=== PATIENT | female | born 1995 | race Caucasian/White ===

== ENCOUNTER 2016-09-22 16:06 | Inpatient (IN) | payer OTHER ==
[2016-09-22] VITALS (11 sets, daily range): BP systolic 112–144; BP diastolic 63–92
[~2016-09-22] VITALS: Ht 152.4 cm; Wt 68.0 kg
[~2016-09-22 16:06] MED LIST: LORATADINE10 M2 PO; MACROBID100 MG PO; METFORMIN HCL500 M1 PO; MOBIC15 MG PO; MOTRIN800 MG PO; NORCO 7.5/321 TABLET PO; PRENATAL TABLE1 EAC3 PO; PROMETHAZINE HC25 M1 PO; VALIUM5 MG PO; ZITHROMAX Z-PA250 MG PO; ZOLOFT25 MG PO; ZOLOFT50 MG PO
[2016-09-22 17:06] LABS: EOSINOPHIL (%) 0.1 % (0-5); HEMATOCRIT 35.5 % (36.0-46.0); IMMATURE GRANULOCYTE (%) 0.3 % (0.0-0.7); LYMPHOCYTE COUNT 2.2 K/uL (1.0-2.8); MCHC 33.5 G/DL (30.0-36.0); MCV 89.4 FL (83-99); MEAN PLAT.VOLUME 10.3 uM^3 (9.5-12.4); MONOCYTE (%) 5.7 % (3-12); MONOCYTE COUNT 0.8 K/uL (0-0.8); PLATELET COUNT 260 K/uL (156-360); RBC DIS.WIDTH-CV 13.2 % (11.8-14.6); RED BLOOD COUNT 3.97 M/uL (3.80-5.20); WHITE BLOOD COUNT 14.1 K/uL (4.1-10.2)
[2016-09-22 17:34] LABS: AMPHETAMINES QUANT VALUE 0 NG/ML; BARBITUATES QUANT VALUE 0 NG/ML; BENZODIAZEPINES QUANT VALUE 0 NG/ML; BENZODIAZEPINES, URINE SCREEN Negative (200 ng/mL); MARIJUANA QUANT VALUE 0 NG/ML; PHENCYCLIDINE QUANT VALUE 0 NG/ML
[2016-09-23] VITALS (22 sets, daily range): BP systolic 106–142; BP diastolic 59–87
[2016-09-23 12:46] LABS: CHLAMYDIA TRACHOMATIS NEGATIVE; NEISSERIA GONORRHOEAE NEGATIVE
[2016-09-24 07:04] VITALS: BP 119/62
[2016-09-24 07:06] LABS: EOSINOPHIL (%) 0.2 % (0-5); HEMATOCRIT 31.9 % (36.0-46.0); IMMATURE GRANULOCYTE (%) 0.3 % (0.0-0.7); IMMATURE GRANULOCYTE COUNT 0.1 K/uL; LYMPHOCYTE COUNT 3.4 K/uL (1.0-2.8); MCH 29.4 PG (29.0-34.0); MCHC 32.9 G/DL (30.0-36.0); MCV 89.4 FL (83-99); MEAN PLAT.VOLUME 10.4 uM^3 (9.5-12.4); MONOCYTE COUNT 1.3 K/uL (0-0.8); NEUTROPHIL (%) 70.9 % (45-76); NEUTROPHIL COUNT 11.7 K/uL (1.8-6.4); PLATELET COUNT 219 K/uL (156-360); RBC DIS.WIDTH-CV 13.4 % (11.8-14.6); RBC DIS.WIDTH-SD 43.5 % (39-53); RED BLOOD COUNT 3.57 M/uL (3.80-5.20); WHITE BLOOD COUNT 16.6 K/uL (4.1-10.2)
[2016-09-24 15:56] VITALS: BP 118/66
[2016-09-25 08:45] VITALS: BP 139/83
== END 2016-09-25 16:15 | disposition home or self-care (01) | DRG 775 ==
LOC: LDRP-OP 16:06 → 2WEST 16:07 → LDRP-OP 10-20 21:34
PROVIDERS: Advanced Practice Midwife
PROC: 3E0S3BZ Introduction of Anesthetic Agent into Epidural Space, Percutaneous Approach (ICD-10-PCS; 2016-09-22)
PROC: 10E0XZZ Delivery of Products of Conception, External Approach (ICD-10-PCS; principal; 2016-09-23)
PROC: 10907ZC Drainage of Amniotic Fluid, Therapeutic from Products of Conception, Via Natural or Artificial Opening (ICD-10-PCS; 2016-09-23)
DX: O77.0 Labor and delivery complicated by meconium in amniotic fluid (principal); O99.354 Diseases of the nervous system complicating childbirth; F33.9 Major depressive disorder, recurrent, unspecified; Z37.0 Single live birth; Z3A.39 39 weeks gestation of pregnancy; O69.81X1 Labor and delivery complicated by cord around neck, without compression, fetus 1; E66.3 Overweight; O99.214 Obesity complicating childbirth; O99.344 Other mental disorders complicating childbirth; F12.90 Cannabis use, unspecified, uncomplicated; F41.9 Anxiety disorder, unspecified; G43.909 Migraine, unspecified, not intractable, without status migrainosus; Z62.810 Personal history of physical and sexual abuse in childhood; F17.290 Nicotine dependence, other tobacco product, uncomplicated; O99.334 Smoking (tobacco) complicating childbirth; F11.90 Opioid use, unspecified, uncomplicated; Z68.29 Body mass index [BMI] 29.0-29.9, adult
CPT/HCPCS: 85025; 87491; 87591; C1726; C1755; G0378; J3010; J7120

== ENCOUNTER 2017-03-08 18:23 | Emergency (ER) | payer OTHER ==
[~2017-03-08] VITALS: Ht 152.4 cm; Wt 63.4 kg
[2017-03-08 20:29] LABS: HEMATOCRIT 38.5 % (36.0-46.0); MCH 29.6 PG (29.0-34.0); MCHC 33.2 G/DL (30.0-36.0); MCV 88.9 FL (83-99); MEAN PLAT.VOLUME 9.2 uM^3 (9.5-12.4); PLATELET COUNT 296 K/uL (156-360); RBC DIS.WIDTH-SD 42.7 % (39-53); RED BLOOD COUNT 4.33 M/uL (3.80-5.20); WHITE BLOOD COUNT 8.1 K/uL (4.1-10.2)
[2017-03-08 20:37] LABS: CHLORIDE 111 mEq/L (99-109); POTASSIUM 3.6 mEq/L (3.7-5.4); SODIUM 144 mEq/L (136-147)
[2017-03-08 20:39] LABS: GLUCOSE 134 mg/dL (70-99)
[2017-03-08 20:40] LABS: ANION GAP 12 MEQ/L (2-14)
[2017-03-08 20:42] LABS: GFR ESTIMATE (CALCULATED) > 59 mL/min/; SERUM ETHYL ALCOHOL < 10 mg/dL
[2017-03-08 20:43] LABS: UREA NITROGEN (BUN) 12 mg/dL (9-23)
[2017-03-08 20:51] LABS: QUANTITATIVE HCG < 4.0 MIU/ML
[2017-03-08 21:23] LABS: ABS NEUTROPHIL COUNT 4.5; ATYPICAL LYMPHOCYTE 3.5 %; EOSINOPHIL ABS CT 0.4; EOSINOPHILS 4.4 % (0-5.0); INSTRUMENT ABS NEUTROPHIL CT 3.5 K/uL; LYMPHOCYTES 33.4 % (15.0-45.0); SEG.NEUTROPHILS 55.2 % (46.0-76.0)
[2017-03-08 22:19] LABS: AMPHETAMINE NEGATIVE (500 ng/mL); BARBITURATES NEGATIVE (200 ng/mL); BENZODIAZEPINES NEGATIVE (150 ng/mL); COCAINE NEGATIVE (150 ng/mL); INTERNAL CONTROLS VALID? YES; METHADONE NEGATIVE (200 ng/mL); METHAMPHETAMINE NEGATIVE (500 ng/mL); OPIATES (MORPHINE) NEGATIVE (100 ng/mL); OXYCODONE NEGATIVE (100 ng/mL); PHENCYCLIDINE NEGATIVE (25 ng/mL); PROPOXYPHENE NEGATIVE (300 ng/mL); THC CANNABINOIDS NEGATIVE (50 ng/mL); TRICYCLIC ANTIDEPRESSANTS NEGATIVE (300 ng/mL)
[2017-03-09 00:20] VITALS: BP 104/60
[2017-03-09] MEDS ORDERED: BENADRYL50 MG PO (13:13)
== END 2017-03-09 00:21 | disposition home or self-care (01) ==
LOC: EME 18:23
PROVIDERS: Emergency Medicine
DX: F43.22 Adjustment disorder with anxiety (principal); F43.10 Post-traumatic stress disorder, unspecified; F43.9 Reaction to severe stress, unspecified; J32.1 Chronic frontal sinusitis; J32.2 Chronic ethmoidal sinusitis; J32.3 Chronic sphenoidal sinusitis; F17.200 Nicotine dependence, unspecified, uncomplicated
CPT/HCPCS: 70450; 80048; 84702; 85025; 90839; 99281; 99284; G0480

== ENCOUNTER 2017-03-09 08:40 | Emergency (ER) | payer OTHER ==
[~2017-03-09] VITALS: Ht 165.1 cm; Wt 62.2 kg
[2017-03-09 09:43] LABS: HEMATOCRIT 41.4 % (36.0-46.0); MCH 29.3 PG (29.0-34.0); MCHC 32.6 G/DL (30.0-36.0); MCV 89.8 FL (83-99); PLATELET COUNT 312 K/uL (156-360); RBC DIS.WIDTH-CV 13.2 % (11.8-14.6); RBC DIS.WIDTH-SD 43.4 % (39-53); RED BLOOD COUNT 4.61 M/uL (3.80-5.20); WHITE BLOOD COUNT 6.3 K/uL (4.1-10.2)
[2017-03-09 09:46] LABS: ADD MIUA? YES; BILIRUBIN NEGATIVE; BLOOD SMALL; COLOR YELLOW ((YELLOW)); GLUCOSE (STRIP) NEGATIVE; KETONES NEGATIVE; LEUKOCYTES NEGATIVE; NITRITE NEGATIVE; PROTEIN (STRIP) NEGATIVE; SPECIFIC GRAVITY 1.013 (1.000-1.030); UROBILINOGEN 0.2 MG/DL (0.2-1.0)
[2017-03-09 09:50] LABS: BACTERIA RARE /HPF; EPITHELIAL CELLS RARE /HPF; MUCUS TRACE /LPF; RED BLOOD CELLS 0-5 /HPF (0-5); WHITE BLOOD CELLS 0-5 /HPF (0-5)
[2017-03-09 09:52] LABS: CHLORIDE 107 mEq/L (99-109); POTASSIUM 4.2 mEq/L (3.7-5.4); SODIUM 140 mEq/L (136-147)
[2017-03-09 09:54] LABS: GLUCOSE 90 mg/dL (70-99)
[2017-03-09 09:55] LABS: ANION GAP 7 MEQ/L (2-14)
[2017-03-09 09:56] LABS: SERUM ETHYL ALCOHOL < 10 mg/dL
[2017-03-09 09:57] LABS: GFR ESTIMATE (CALCULATED) > 59 mL/min/
[2017-03-09 09:59] LABS: UREA NITROGEN (BUN) 11 mg/dL (9-23)
[2017-03-09 10:00] LABS: SALICYLATE < 5.0 MG/DL (15-30)
[2017-03-09 10:09] LABS: QUANTITATIVE HCG < 4.0 MIU/ML
[2017-03-09 10:09] LABS: ADD MEDTOX COMMENT Y; AMPHETAMINE NEGATIVE (500 ng/mL); BARBITURATES NEGATIVE (200 ng/mL); BENZODIAZEPINES PRESUMPTIVE POSITIVE (150 ng/mL); COCAINE NEGATIVE (150 ng/mL); INTERNAL CONTROLS VALID? YES; METHADONE NEGATIVE (200 ng/mL); METHAMPHETAMINE NEGATIVE (500 ng/mL); OPIATES (MORPHINE) NEGATIVE (100 ng/mL); OXYCODONE NEGATIVE (100 ng/mL); PHENCYCLIDINE NEGATIVE (25 ng/mL); PROPOXYPHENE NEGATIVE (300 ng/mL); THC CANNABINOIDS NEGATIVE (50 ng/mL); TRICYCLIC ANTIDEPRESSANTS NEGATIVE (300 ng/mL)
[2017-03-09 11:07] LABS: BENZODIAZEPINES, URINE SCREEN POSITIVE (200 ng/mL)
[2017-03-09] MEDS ORDERED: BENADRYL50 MG PO (13:13)
[2017-03-09 14:12] VITALS: BP 118/75
== END 2017-03-09 14:13 | disposition home or self-care (01) ==
LOC: EME → EDBD 08:40 → EME 08:40
PROVIDERS: Physician Assistant
DX: F41.9 Anxiety disorder, unspecified (principal); F17.200 Nicotine dependence, unspecified, uncomplicated
CPT/HCPCS: 80048; 81003; 84702; 84999; 85027; 95819; 99281; 99284; G0480

== ENCOUNTER 2017-04-01 19:35 | Emergency (ER) | payer OTHER ==
[~2017-04-01] VITALS: Ht 152.4 cm; Wt 61.6 kg
[~2017-04-01 19:35] MED LIST changes: +BENADRYL50 MG PO
[2017-04-01 22:52] LABS: INTERNAL CONTROL VALID? YES
[2017-04-01 22:53] LABS: ADD MIUA? NO; BILIRUBIN NEGATIVE; BLOOD NEGATIVE; COLOR COLORLESS ((YELLOW)); GLUCOSE (STRIP) NEGATIVE; KETONES NEGATIVE; LEUKOCYTES NEGATIVE; NITRITE NEGATIVE; PROTEIN (STRIP) NEGATIVE; SPECIFIC GRAVITY 1.004 (1.000-1.030); UROBILINOGEN 0.2 MG/DL (0.2-1.0)
[2017-04-01] MEDS ORDERED: NAPROSYN500 MG PO (23:04)
[2017-04-01] MEDS ORDERED: REGLAN10 MG PO (23:04)
[2017-04-01] MEDS ORDERED: IMITREX50 MG PO (23:04)
[2017-04-01 23:59] VITALS: BP 128/88
== END 2017-04-02 | disposition home or self-care (01) ==
LOC: EME 19:35
PROVIDERS: Physician Assistant
DX: G43.909 Migraine, unspecified, not intractable, without status migrainosus (principal); F17.200 Nicotine dependence, unspecified, uncomplicated
CPT/HCPCS: 81003; 84703; 99281; 99284; J1200; J1885; J2765; J3030; J7030

== ENCOUNTER 2017-07-07 19:47 | Emergency (ER) | payer OTHER ==
[~2017-07-07] VITALS: Ht 152.4 cm; Wt 67.1 kg
[~2017-07-07 19:47] MED LIST changes: +IMITREX50 MG PO; +NAPROSYN500 MG PO; +REGLAN10 MG PO
[2017-07-07 20:31] LABS: HEMATOCRIT 35.1 % (36.0-46.0); MCH 30.7 PG (29.0-34.0); MCHC 33.9 G/DL (30.0-36.0); MCV 90.5 FL (83-99); PLATELET COUNT 292 K/uL (156-360); RBC DIS.WIDTH-CV 13.1 % (11.8-14.6); RBC DIS.WIDTH-SD 42.8 % (39-53); RED BLOOD COUNT 3.88 M/uL (3.80-5.20)
[2017-07-07 20:38] LABS: INTER. NORMALIZED RATIO 0.9; PROTHROMBIN TIME 10.7 SEC (10.2-12.9)
[2017-07-07 20:42] LABS: CHLORIDE 103 mEq/L (99-109); POTASSIUM 3.5 mEq/L (3.7-5.4); SODIUM 136 mEq/L (136-147)
[2017-07-07 20:44] LABS: GLUCOSE 121 mg/dL (70-99)
[2017-07-07 20:45] LABS: ADD MIUA? YES; BILIRUBIN NEGATIVE; BLOOD NEGATIVE; COLOR YELLOW ((YELLOW)); GLUCOSE (STRIP) NEGATIVE; KETONES NEGATIVE; LEUKOCYTES TRACE; NITRITE NEGATIVE; PROTEIN (STRIP) NEGATIVE; SPECIFIC GRAVITY 1.013 (1.000-1.030); UROBILINOGEN 0.2 MG/DL (0.2-1.0)
[2017-07-07 20:45] LABS: ANION GAP 9 MEQ/L (2-14)
[2017-07-07 20:47] LABS: BACTERIA RARE /HPF; EPITHELIAL CELLS 1+ /HPF; MUCUS NONE SEEN /LPF; RED BLOOD CELLS 0-5 /HPF (0-5); UCUL ADDED? NO; WHITE BLOOD CELLS 0-5 /HPF (0-5)
[2017-07-07 20:48] LABS: GFR ESTIMATE (CALCULATED) > 59 mL/min/; UREA NITROGEN (BUN) 5 mg/dL (9-23)
[2017-07-07 21:15] LABS: QUANTITATIVE HCG 82299.8 MIU/ML
[2017-07-07] MEDS ORDERED: KEFLEX500 MG PO (21:27)
[2017-07-07 21:31] VITALS: BP 128/76
== END 2017-07-07 21:32 | disposition home or self-care (01) ==
LOC: RME 19:47 → EME 19:47 → RME 21:32
DX: O99.519 Diseases of the respiratory system complicating pregnancy, unspecified trimester (principal); J06.9 Acute upper respiratory infection, unspecified; O26.899 Other specified pregnancy related conditions, unspecified trimester; R23.3 Spontaneous ecchymoses; O99.330 Smoking (tobacco) complicating pregnancy, unspecified trimester; F17.200 Nicotine dependence, unspecified, uncomplicated; Z3A.00 Weeks of gestation of pregnancy not specified; Z88.1 Allergy status to other antibiotic agents
CPT/HCPCS: 80048; 81003; 84702; 85027; 85610; 86850; 86900; 86901; 87651 90; 99281; 99283

== ENCOUNTER 2017-07-15 19:36 | Inpatient (IN) | payer OTHER ==
[~2017-07-15] VITALS: Ht 152.4 cm; Wt 64.9 kg
[~2017-07-15 19:36] MED LIST changes: +KEFLEX500 MG PO
[2017-07-15 20:28] LABS: HEMATOCRIT 37.7 % (36.0-46.0); MCH 30.9 PG (29.0-34.0); MCHC 34.2 G/DL (30.0-36.0); MCV 90.4 FL (83-99); MEAN PLAT.VOLUME 8.9 uM^3 (9.5-12.4); PLATELET COUNT 302 K/uL (156-360); RED BLOOD COUNT 4.17 M/uL (3.80-5.20); WHITE BLOOD COUNT 7.7 K/uL (4.1-10.2)
[2017-07-15 20:43] LABS: CHLORIDE 103 mEq/L (99-109); POTASSIUM 3.4 mEq/L (3.7-5.4); SODIUM 136 mEq/L (136-147)
[2017-07-15 20:45] LABS: GLUCOSE 76 mg/dL (70-99)
[2017-07-15 20:46] LABS: ANION GAP 10 MEQ/L (2-14)
[2017-07-15 20:48] LABS: SERUM ETHYL ALCOHOL < 10 mg/dL
[2017-07-15 20:49] LABS: GFR ESTIMATE (CALCULATED) > 59 mL/min/
[2017-07-15 20:51] LABS: UREA NITROGEN (BUN) 5 mg/dL (9-23)
[2017-07-15 20:52] LABS: SALICYLATE < 5.0 MG/DL (15-30)
[2017-07-15 20:54] LABS: AMPHETAMINE NEGATIVE (500 ng/mL); BARBITURATES NEGATIVE (200 ng/mL); BENZODIAZEPINES NEGATIVE (150 ng/mL); COCAINE NEGATIVE (150 ng/mL); METHADONE NEGATIVE (200 ng/mL); METHAMPHETAMINE NEGATIVE (500 ng/mL); OPIATES (MORPHINE) NEGATIVE (100 ng/mL); OXYCODONE NEGATIVE (100 ng/mL); PHENCYCLIDINE NEGATIVE (25 ng/mL); PROPOXYPHENE NEGATIVE (300 ng/mL); THC CANNABINOIDS NEGATIVE (50 ng/mL); TRICYCLIC ANTIDEPRESSANTS NEGATIVE (300 ng/mL)
[2017-07-15 20:55] LABS: INTERNAL CONTROLS VALID? YES
[2017-07-15 21:20] LABS: QUANTITATIVE HCG 114997.9 MIU/ML
[2017-07-16] MEDS ORDERED: AMINO ACID1 EACH PO (05:37)
[2017-07-16 08:00] VITALS: BP 107/53
[2017-07-16 15:23] VITALS: BP 118/77
[2017-07-17 07:44] VITALS: BP 96/51
[2017-07-17 13:37] LABS: ALKALINE PHOSPHATASE 51 IU/L (3-129); DIRECT BILIRUBIN 0.1 mg/dL (0.0-0.3); TOTAL BILIRUBIN 0.5 MG/DL (0.0-1.0)
[2017-07-17 13:58] LABS: ANION GAP 8 MEQ/L (2-14)
[2017-07-17 13:59] LABS: CHLORIDE 103 MEQ/L (99-109); GFR ESTIMATE (CALCULATED) > 59 mL/min/; GLUCOSE 46 mg/dL (70-99); SAMPLE HEMOLYSIS CHECK 0; SAMPLE ICTERIC CHECK 0; SAMPLE LIPEMIA CHECK 0; SODIUM 138 MEQ/L (136-147); UREA NITROGEN (BUN) 8 mg/dL (9-23)
[2017-07-17 14:25] LABS: POINT-OF-CARE METER ID UU14188576
[2017-07-17 15:59] VITALS: BP 119/69
[2017-07-18 06:05] LABS: POINT-OF-CARE METER ID UU14188576; POINT-OF-CARE USER ID ENVTLS63
[2017-07-18 07:50] VITALS: BP 83/45
[2017-07-18 08:25] VITALS: BP 100/58
[2017-07-18 09:30] VITALS: BP 100/58
[2017-07-18 10:37] LABS: HBSG INDEX 0.14; HPCA INDEX 0.16
[2017-07-18 10:38] LABS: ANTI-HEPATITIS A VIRUS (IGM) Nonreactive; HAV INDEX 0.12
[2017-07-18 10:39] LABS: ANTI-HEPATITIS B CORE (IGM) Nonreactive; HBC IgM INDEX 0.07
[2017-07-18 10:40] LABS: HIV INDEX 0.15; HIV-1/2 AB/AG COMBO Nonreactive
[2017-07-18 15:55] VITALS: BP 94/54
[2017-07-19 07:54] VITALS: BP 96/52
[2017-07-19 16:27] VITALS: BP 120/60
[2017-07-20 07:57] VITALS: BP 105/59
[2017-07-20] MEDS ORDERED: BUPRENORPHINE HC2 MG SL (09:05)
[2017-07-20] MEDS ORDERED: ZOLOFT50 MG PO (09:05)
[2017-07-20] MEDS ORDERED: BUPRENORPHINE HC8 MG SL (09:05)
[2017-07-20] MEDS ORDERED: PRENATAL VITAM1 EAC6 PO (09:06)
[2017-07-20] MEDS ORDERED: METOCLOPRAMIDE10 MG PO (09:06)
== END 2017-07-20 10:35 | disposition home or self-care (01) | DRG 781 ==
LOC: EME 19:36 → 1WEST 07-16 01:30 → EDOF 07-16 01:30 → ENRESERV 07-16 05:00 → 1WEST 07-16 05:54
PROVIDERS: Obstetrics & Gynecology; Psychiatry & Neurology Psychiatry
PROC: 0JQH0ZZ Repair Left Lower Arm Subcutaneous Tissue and Fascia, Open Approach (ICD-10-PCS; principal; 2017-07-16)
DX: O99.341 Other mental disorders complicating pregnancy, first trimester (principal); F32.9 Major depressive disorder, single episode, unspecified; F43.10 Post-traumatic stress disorder, unspecified; O99.321 Drug use complicating pregnancy, first trimester; F11.20 Opioid dependence, uncomplicated; O9A.211 Injury, poisoning and certain other consequences of external causes complicating pregnancy, first trimester; S51.812A Laceration without foreign body of left forearm, initial encounter; X78.9XXA Intentional self-harm by unspecified sharp object, initial encounter; O99.331 Smoking (tobacco) complicating pregnancy, first trimester; F17.210 Nicotine dependence, cigarettes, uncomplicated; O21.0 Mild hyperemesis gravidarum; O99.281 Endocrine, nutritional and metabolic diseases complicating pregnancy, first trimester; E87.6 Hypokalemia; E28.2 Polycystic ovarian syndrome; O99.611 Diseases of the digestive system complicating pregnancy, first trimester; K59.00 Constipation, unspecified; K62.5 Hemorrhage of anus and rectum; O99.351 Diseases of the nervous system complicating pregnancy, first trimester; G43.909 Migraine, unspecified, not intractable, without status migrainosus; Z59.0 Homelessness; Z91.14 Patient's other noncompliance with medication regimen; Z88.1 Allergy status to other antibiotic agents; Z3A.08 8 weeks gestation of pregnancy
CPT/HCPCS: 76801; 80048; 80048 91; 80074; 80076; 82948; 84443; 84702; 85027; 86703; 90837; 97150 GO; 99281; 99285; G0480; J0571; Q0169; Q0177

== ENCOUNTER 2017-12-13 14:09 | Outpatient (CLI) | payer OTHER ==
[~2017-12-13] VITALS: Ht 152.4 cm; Wt 63.5 kg
[~2017-12-13 14:09] MED LIST changes: +AMINO ACID1 EACH PO; +BUPRENORPHINE HC2 MG SL; +BUPRENORPHINE HC8 MG SL; +METOCLOPRAMIDE10 MG PO; +PRENATAL VITAM1 EAC6 PO
[2017-12-13 14:30] VITALS: BP 103/74
[2017-12-13 16:46] LABS: AMPHETAMINE NEGATIVE (500 ng/mL); BARBITURATES PRESUMPTIVE POSITIVE (200 ng/mL); BENZODIAZEPINES NEGATIVE (150 ng/mL); BUPRENORPHINE PRESUMPTIVE POSITIVE (10 ng/mL); COCAINE NEGATIVE (150 ng/mL); METHADONE NEGATIVE (200 ng/mL); METHAMPHETAMINE NEGATIVE (500 ng/mL); OPIATES (MORPHINE) NEGATIVE (100 ng/mL); OXYCODONE NEGATIVE (100 ng/mL); PHENCYCLIDINE NEGATIVE (25 ng/mL); PROPOXYPHENE NEGATIVE (300 ng/mL); THC CANNABINOIDS NEGATIVE (50 ng/mL); TRICYCLIC ANTIDEPRESSANTS NEGATIVE (300 ng/mL)
== END 2017-12-13 16:35 | disposition home or self-care (01) ==
LOC: LDRP-OP 14:09 → 2WEST 14:10
PROVIDERS: Advanced Practice Midwife
DX: O36.8930 Maternal care for other specified fetal problems, third trimester, not applicable or unspecified (principal); O99.353 Diseases of the nervous system complicating pregnancy, third trimester; G40.909 Epilepsy, unspecified, not intractable, without status epilepticus; O99.323 Drug use complicating pregnancy, third trimester; F11.20 Opioid dependence, uncomplicated; Z87.891 Personal history of nicotine dependence; Z88.0 Allergy status to penicillin; Z3A.29 29 weeks gestation of pregnancy
CPT/HCPCS: 59025; 84999; G0378

== ENCOUNTER 2017-12-31 19:23 | Outpatient (CLI) | payer OTHER ==
[~2017-12-31] VITALS: Ht 152.4 cm; Wt 67.1 kg
[2017-12-31 19:37] VITALS: BP 120/61
[2017-12-31] MEDS ORDERED: BUPRENORPHINE HC8 MG SL (19:53)
[2017-12-31] MEDS ORDERED: TYLENOL EXTRA500 MG PO (19:56)
[2017-12-31 20:56] LABS: AMPHETAMINE NEGATIVE (500 ng/mL); BARBITURATES PRESUMPTIVE POSITIVE (200 ng/mL); BENZODIAZEPINES NEGATIVE (150 ng/mL); BUPRENORPHINE PRESUMPTIVE POSITIVE (10 ng/mL); COCAINE NEGATIVE (150 ng/mL); METHADONE NEGATIVE (200 ng/mL); METHAMPHETAMINE NEGATIVE (500 ng/mL); OPIATES (MORPHINE) NEGATIVE (100 ng/mL); OXYCODONE NEGATIVE (100 ng/mL); PHENCYCLIDINE NEGATIVE (25 ng/mL); PROPOXYPHENE NEGATIVE (300 ng/mL); THC CANNABINOIDS NEGATIVE (50 ng/mL); TRICYCLIC ANTIDEPRESSANTS NEGATIVE (300 ng/mL)
[2017-12-31 20:58] LABS: APPEARANCE SL.HAZY ((CLEAR)); BILIRUBIN NEGATIVE; BLOOD NEGATIVE; COLOR YELLOW ((YELLOW)); GLUCOSE (STRIP) NEGATIVE; KETONES NEGATIVE; LEUKOCYTES TRACE; NITRITE NEGATIVE; PROTEIN (STRIP) NEGATIVE; UROBILINOGEN 0.2 MG/DL (0.2-1.0)
[2017-12-31 21:11] LABS: EPITHELIAL CELLS 1+ /HPF; MUCUS TRACE /LPF; RED BLOOD CELLS 0-5 /HPF (0-5); WHITE BLOOD CELLS 0-5 /HPF (0-5)
[2017-12-31 21:12] LABS: BACTERIA RARE /HPF
[2017-12-31] MEDS ORDERED: BUSPAR10 MG PO (21:35)
[2017-12-31] MEDS ORDERED: ZYRTEC10 M3 PO (21:36)
[2017-12-31] MEDS ORDERED: MELATONIN3 M4 PO (21:36)
[2017-12-31] MEDS ORDERED: ATARAX,VISTARIL50 MG PO (21:39)
[2017-12-31] MEDS ORDERED: BENADRYL25 MG PO (21:40)
[2017-12-31 22:05] LABS: CANDIDA DNA PROBE NEGATIVE; GARDNERELLA DNA PROBE POSITIVE; TRICHOMONAS DNA PROBE NEGATIVE
== END 2017-12-31 22:10 | disposition home or self-care (01) ==
LOC: LDRP-OP → 2WEST 19:25 → LDRP-OP 03-25 17:05
PROVIDERS: Advanced Practice Midwife
DX: O26.893 Other specified pregnancy related conditions, third trimester (principal); M54.5 Low back pain; O99.353 Diseases of the nervous system complicating pregnancy, third trimester; G40.909 Epilepsy, unspecified, not intractable, without status epilepticus; O99.343 Other mental disorders complicating pregnancy, third trimester; F32.9 Major depressive disorder, single episode, unspecified; O99.323 Drug use complicating pregnancy, third trimester; F11.20 Opioid dependence, uncomplicated; Z3A.32 32 weeks gestation of pregnancy
CPT/HCPCS: 59025; 81003; 82731; 84999; 87086; 87480; 87510; 87660; G0378

== ENCOUNTER 2018-01-23 11:15 | Emergency (ER) | payer OTHER ==
[~2018-01-23] VITALS: Ht 152.4 cm; Wt 68.0 kg
[~2018-01-23 11:15] MED LIST changes: +ATARAX,VISTARIL50 MG PO; +BENADRYL25 MG PO; +BUSPAR10 MG PO; +MELATONIN3 M4 PO; +TYLENOL EXTRA500 MG PO; +ZYRTEC10 M3 PO
[2018-01-23 13:05] LABS: HEMATOCRIT 37.4 % (36.0-46.0); HEMOGLOBIN 12.9 G/DL (11.9-15.5); MCH 31.3 PG (29.0-34.0); MCHC 34.5 G/DL (30.0-36.0); MCV 90.8 FL (83-99); PLATELET COUNT 188 K/uL (156-360); RBC DIS.WIDTH-SD 43.1 % (39-53); RED BLOOD COUNT 4.12 M/uL (3.80-5.20); WHITE BLOOD COUNT 8.5 K/uL (4.1-10.2)
[2018-01-23 13:13] LABS: CHLORIDE 106 mEq/L (99-109); POTASSIUM 3.9 mEq/L (3.7-5.4); SODIUM 138 mEq/L (136-147)
[2018-01-23 13:15] LABS: GLUCOSE 96 mg/dL (70-99)
[2018-01-23 13:19] LABS: CREATININE 0.6 mg/dL (0.6-1.3); GFR ESTIMATE (CALCULATED) > 59 mL/min/
[2018-01-23 13:20] LABS: UREA NITROGEN (BUN) 7 mg/dL (9-23)
[2018-01-23 14:33] VITALS: BP 98/58
== END 2018-01-23 14:44 | disposition home or self-care (01) ==
LOC: EME 11:15
PROVIDERS: Emergency Medicine
DX: O99.89 Other specified diseases and conditions complicating pregnancy, childbirth and the puerperium (principal); R51 Headache; O21.9 Vomiting of pregnancy, unspecified; O99.330 Smoking (tobacco) complicating pregnancy, unspecified trimester; F17.200 Nicotine dependence, unspecified, uncomplicated; Z3A.00 Weeks of gestation of pregnancy not specified
CPT/HCPCS: 80048; 81003; 85027; 99281; 99284; J0780; J2405; J7030

== ENCOUNTER 2018-02-24 08:32 | Inpatient (IN) | payer OTHER ==
[2018-02-24] VITALS (17 sets, daily range): BP systolic 119–153; BP diastolic 60–90
[~2018-02-24] VITALS: Ht 152.4 cm; Wt 72.5 kg
[2018-02-24] MEDS ORDERED: ZOLOFT100 MG PO (08:58)
[2018-02-24] MEDS ORDERED: ZOLOFT50 MG PO (09:00)
[2018-02-24 10:33] LABS: BASOPHIL (%) 0.6 % (0-1); BASOPHIL COUNT 0.1 K/uL (0-0.1); EOSINOPHIL (%) 5.2 % (0-5); EOSINOPHIL COUNT 0.4 K/uL (0-0.3); HEMATOCRIT 38.1 % (36.0-46.0); HEMOGLOBIN 12.6 G/DL (11.9-15.5); IMMATURE GRANULOCYTE (%) 0.6 % (0.0-0.7); LYMPHOCYTE (%) 29.9 % (15-42); LYMPHOCYTE COUNT 2.5 K/uL (1.0-2.8); MCH 30.4 PG (29.0-34.0); MCHC 33.1 G/DL (30.0-36.0); MCV 91.8 FL (83-99); MONOCYTE (%) 7.2 % (3-12); MONOCYTE COUNT 0.6 K/uL (0-0.8); NEUTROPHIL (%) 56.5 % (45-76); NEUTROPHIL COUNT 4.8 K/uL (1.8-6.4); PLATELET COUNT 193 K/uL (156-360); RBC DIS.WIDTH-CV 13.1 % (11.8-14.6); RBC DIS.WIDTH-SD 43.3 % (39-53); RED BLOOD COUNT 4.15 M/uL (3.80-5.20); WHITE BLOOD COUNT 8.5 K/uL (4.1-10.2)
[2018-02-24 11:01] LABS: AMPHETAMINE NEGATIVE (500 ng/mL); BARBITURATES NEGATIVE (200 ng/mL); BENZODIAZEPINES NEGATIVE (150 ng/mL); BUPRENORPHINE PRESUMPTIVE POSITIVE (10 ng/mL); COCAINE NEGATIVE (150 ng/mL); METHADONE NEGATIVE (200 ng/mL); METHAMPHETAMINE NEGATIVE (500 ng/mL); OPIATES (MORPHINE) NEGATIVE (100 ng/mL); OXYCODONE NEGATIVE (100 ng/mL); PHENCYCLIDINE NEGATIVE (25 ng/mL); PROPOXYPHENE NEGATIVE (300 ng/mL); THC CANNABINOIDS NEGATIVE (50 ng/mL); TRICYCLIC ANTIDEPRESSANTS NEGATIVE (300 ng/mL)
[2018-02-24 11:12] LABS: ANTI-HIV (AIDS STAT TEST) NONREACTIVE
[2018-02-24 11:19] LABS: HIV-1/2 AB/AG COMBO Nonreactive
[2018-02-24 14:44] LABS: TREPONEMA ANTIBODY NEGATIVE (NEGATIVE)
[2018-02-25 05:58] LABS: BASOPHIL (%) 0.2 % (0-1); EOSINOPHIL (%) 2.1 % (0-5); EOSINOPHIL COUNT 0.3 K/uL (0-0.3); HEMATOCRIT 27.2 % (36.0-46.0); HEMOGLOBIN 9.2 G/DL (11.9-15.5); IMMATURE GRANULOCYTE (%) 0.4 % (0.0-0.7); LYMPHOCYTE (%) 21.1 % (15-42); LYMPHOCYTE COUNT 3.1 K/uL (1.0-2.8); MCHC 33.8 G/DL (30.0-36.0); MCV 91.6 FL (83-99); MONOCYTE COUNT 0.9 K/uL (0-0.8); NEUTROPHIL (%) 70.2 % (45-76); NEUTROPHIL COUNT 10.2 K/uL (1.8-6.4); PLATELET COUNT 165 K/uL (156-360); RBC DIS.WIDTH-SD 42.6 % (39-53); RED BLOOD COUNT 2.97 M/uL (3.80-5.20); WHITE BLOOD COUNT 14.6 K/uL (4.1-10.2)
[2018-02-25 07:30] VITALS: BP 115/65
[2018-02-25 21:36] VITALS: BP 140/85
[2018-02-26 07:37] VITALS: BP 108/69
[2018-02-26] MEDS ORDERED: IBUPROFEN800 MG PO (10:19)
[2018-02-26] MEDS ORDERED: FERROUS GLUCON324 MG PO (10:21)
== END 2018-02-26 13:34 | disposition home or self-care (01) | DRG 775 ==
LOC: LDRP-OP → 2WEST 08:34 → LDRP-OP 03-25 22:27
PROVIDERS: Advanced Practice Midwife; Obstetrics & Gynecology
PROC: 10E0XZZ Delivery of Products of Conception, External Approach (ICD-10-PCS; principal; 2018-02-24)
PROC: 3E0R3BZ Introduction of Anesthetic Agent into Spinal Canal, Percutaneous Approach (ICD-10-PCS; principal; 2018-02-24)
PROC: 10907ZC Drainage of Amniotic Fluid, Therapeutic from Products of Conception, Via Natural or Artificial Opening (ICD-10-PCS; principal; 2018-02-24)
PROC: 3E033VJ Introduction of Other Hormone into Peripheral Vein, Percutaneous Approach (ICD-10-PCS; principal; 2018-02-24)
PROC: 00HU33Z Insertion of Infusion Device into Spinal Canal, Percutaneous Approach (ICD-10-PCS; principal; 2018-02-24)
DX: O99.324 Drug use complicating childbirth (principal); F12.90 Cannabis use, unspecified, uncomplicated; F14.90 Cocaine use, unspecified, uncomplicated; F11.90 Opioid use, unspecified, uncomplicated; Z37.0 Single live birth; F17.200 Nicotine dependence, unspecified, uncomplicated; D62 Acute posthemorrhagic anemia; O99.02 Anemia complicating childbirth; O99.334 Smoking (tobacco) complicating childbirth; R56.9 Unspecified convulsions; O75.89 Other specified complications of labor and delivery; O76 Abnormality in fetal heart rate and rhythm complicating labor and delivery; O69.1XX0 Labor and delivery complicated by cord around neck, with compression, not applicable or unspecified; Z3A.40 40 weeks gestation of pregnancy
CPT/HCPCS: 85025; 86780; 87389; C1755; J0571; J2590; J3010; J7120